=== PATIENT | male | born 1955 | race Caucasian/White ===

== ENCOUNTER 2022-12-11 10:33 | Outpatient (REF) | payer MEDICARE, SELFPAY ==
[2022-12-11 10:38] VITALS: BP 163/86; PULSE 83; RESP 18; TEMP 36.2; O2SAT 98
[2022-12-11 14:48] VITALS: BMI 24.4
== END 2022-12-11 10:34 | disposition home or self-care (01) ==
LOC: HO.MS 10:33
PROVIDERS: PCP Internal Medicine; Visit Provider Ophthalmology
PROC: (CPT 66761; principal; 2022-12-11 12:20)
DX: H40.213 Acute angle-closure glaucoma, bilateral (principal); I10 Essential (primary) hypertension; E11.9 Type 2 diabetes mellitus without complications
CPT/HCPCS: 66761

== ENCOUNTER 2023-01-08 11:48 | Outpatient (REF) | payer MEDICARE, SELFPAY ==
[2023-01-08 11:56] VITALS: BP 149/82; PULSE 101; RESP 18; TEMP 36.6; O2SAT 97
[2023-01-08 15:09] VITALS: BMI 22.9
== END 2023-01-08 11:49 | disposition home or self-care (01) ==
LOC: HO.MS 11:48
PROVIDERS: Visit Provider Ophthalmology
PROC: (CPT 66761; principal; 2023-01-08 15:40)
DX: H40.20X0 Unspecified primary angle-closure glaucoma, stage unspecified (principal); H40.213 Acute angle-closure glaucoma, bilateral
CPT/HCPCS: 66761